=== PATIENT | female | born 1965 | race Hispanic/Latino ===

== ENCOUNTER → 2021-01-28 | Outpatient (CLI) | payer OTHER | END | disposition home or self-care (01) | LOC: RAH 15:32 | PROVIDERS: ATTEND Anesthesiology | DX: G89.4 Chronic pain syndrome (principal); M51.16 Intervertebral disc disorders with radiculopathy, lumbar region; M48.07 Spinal stenosis, lumbosacral region | CPT/HCPCS: 72148 ==

== ENCOUNTER 2021-02-08 13:00 | Observation (INO) | payer BC ==
[2021-02-08 11:17] LABS: BASOPHILS % (AUTO) 0.6 % (0.0-5.0); EOSINOPHILS % (AUTO) 1.7 % (0.0-8.0); LYMPHOCYTES % (AUTO) 27.9 % (21.0-51.0); MEAN CORPUSCULAR HEMOGLOBIN 31.7 pg (27.0-33.0); MEAN CORPUSCULAR HGB CONC 33.2 g/dL (32.0-36.0); MEAN CORPUSCULAR VOLUME 95.6 fL (79-99); MONOCYTES % (AUTO) 6.3 % (3.0-13.0); NEUTROPHILS % (AUTO) 63.3 % (40.0-77.0); PLATELET COUNT (AUTO) 239 K/uL (130-400); RED BLOOD CELL COUNT(AUTO) 4.29 MIL/uL (4.00-5.50); RED CELL DISTRIBUTION WIDTH 13.2 % (11.0-15.5); WHITE BLOOD COUNT (AUTO) 8.6 K/uL (4.8-10.8)
[2021-02-08 11:27] LABS: POTASSIUM 4.5 mmol/L (3.5-5.1)
[2021-02-12] MEDS ORDERED: GABA-533 PO (11:42)
[2021-02-12] MEDS ORDERED: LOSA25TA41 PO (11:42)
[2021-02-12] MEDS ORDERED: IBUP-14 PO (11:42)
[2021-02-12] MEDS ORDERED: TIZA4TAB5 PO (11:42)
[2021-02-13] VITALS (23 sets, daily range): BP systolic 104–139; BP diastolic 51–77
[2021-02-13] MEDS ORDERED: CEFAZOLIN SODIUM 1 GM VIAL ONE ×2 (06:24→06:46)
[2021-02-13] MEDS ORDERED: 0.9%NACL 1000ML 1,000 ML IV ONE (06:24)
[2021-02-13] MEDS ORDERED: BUPIVACAINE/EPI/PF 0.25% 30ML VIAL IJ ONE (06:46)
[2021-02-13] MEDS ORDERED: THROMBIN-JMI 20000 UNIT KIT TP ONE (06:46)
[2021-02-13] MEDS ORDERED: MORPHINE PF 100MG/10ML AMP IV ONE (06:46)
[2021-02-13] MEDS ORDERED: PHENYLEPHRINE HCL 10 MG/ML 1ML VIAL IV ONE ×2 (07:19→07:22)
[2021-02-13] MEDS ORDERED: LIDOCAINE PF 100MG/5ML (2%) SYRINGE 5ML ONE ×2 (07:19→10:02)
[2021-02-13] MEDS ORDERED: SUCCINYLCHOLINE CHLORIDE 20 MG/ML 10 ML VIAL ONE (07:19)
[2021-02-13] MEDS ORDERED: ROCURONIUM 10MG/1ML SYR 10 MG/ML ML ONE (07:20)
[2021-02-13] MEDS ORDERED: PROPOFOL 10 MG/ML 20ML VIAL IV ONE (07:20)
[2021-02-13] MEDS ORDERED: FENTANYL CITRATE PF 50 MCG/1 ML 2ML VIAL ONE (07:20)
[2021-02-13] MEDS ORDERED: CEFAZOLIN SODIUM 1 GM VIAL IVP ONE (08:00)
[2021-02-13] MEDS ORDERED: ASCO250T22 PO (08:14)
[2021-02-13] MEDS ORDERED: SOY155CA PO (08:14)
[2021-02-13] MEDS ORDERED: TUME1CAP PO (08:14)
[2021-02-13] MEDS ORDERED: MV-M1TAB20 PO (08:14)
[2021-02-13] MEDS ORDERED: DEXAMETHASONE SOD PHOSPHATE 10MG/ML 1ML VIAL ONE (08:52)
[2021-02-13] MEDS ORDERED: NEOSTIGMINE 5MG/5ML SYR IV ONE (09:47)
[2021-02-13] MEDS ORDERED: GLYCOPYRROLATE 1 MG/5 ML SYRINGE ONE (09:47)
[2021-02-13] MEDS ORDERED: KETOROLAC 30MG VIAL (30MG/ML) ONE (09:48)
[2021-02-13] MEDS: ASCORBIC ACID 500 MG TAB PO SCH (10:23)
[2021-02-13] MEDS ORDERED: LACTATED RINGERS 1000ML 1,000 ML IV SCH (10:30)
[2021-02-13] MEDS ORDERED: 0.9%NACL 10ML VIAL IVP PRN ×2 (10:30)
[2021-02-13] MEDS ORDERED: PROMETHAZINE HCL 25 MG/ML 1ML AMPULE IM PRN ×2 (10:30)
[2021-02-13] MEDS: LACTATED RINGERS 1000ML 1,000 ML IV SCH ×2 (10:30→23:33)
[2021-02-13] MEDS ORDERED: HYDROCODONE/ACETAMINOPHEN 5/325 MG TAB PO PRN ×2 (10:30)
[2021-02-13] MEDS: DEXAMETHASONE SOD PHOSPHATE 4 MG/ML 1ML VIAL IVP SCH ×3 (10:30→22:23)
[2021-02-13] MEDS ORDERED: IBUPROFEN 200 MG TAB PO SCH (10:30)
[2021-02-13] MEDS ORDERED: MORPHINE 2 MG SYG IVP PRN ×2 (10:30)
[2021-02-13] MEDS ORDERED: DEXAMETHASONE SOD PHOSPHATE 4 MG/ML 1ML VIAL IVP SCH (10:30)
[2021-02-13] MEDS: [UNRECOGNIZED DRUG - OTHER] PO SCH (10:32)
[2021-02-13] MEDS ORDERED: GABAPENTIN 300 MG CAPSULE PO SCH (21:00)
[2021-02-13] MEDS ORDERED: TIZANIDINE HCL 2 MG TABLET PO SCH (21:00)
[2021-02-14 00:07] VITALS: BP 125/68
[2021-02-14 03:48] VITALS: BP 116/64
[2021-02-14] MEDS: DEXAMETHASONE SOD PHOSPHATE 4 MG/ML 1ML VIAL IVP SCH (04:22)
[2021-02-14 08:00] VITALS: BP 130/80
[2021-02-14] MEDS: ASCORBIC ACID 500 MG TAB PO SCH (08:40)
[2021-02-14] MEDS: [UNRECOGNIZED DRUG - OTHER] PO SCH (08:42)
[2021-02-14] MEDS ORDERED: LOSARTAN 25 MG TABLET PO SCH (09:00)
[2021-02-14] MEDS ORDERED: SOY ISOFLA PO SCH (09:00)
[2021-02-14] MEDS ORDERED: FE FUMARATE/FA/MV, MIN COMB#15 1 TAB PO SCH (09:00)
[2021-02-14] MEDS ORDERED: MAG BARK PO SCH (09:00)
[2021-02-14] MEDS ORDERED: BLK COHOSH PO SCH (09:00)
== END 2021-02-14 10:24 | disposition home or self-care (01) ==
LOC: EDSTATUS 13:00 → DAHIP 02-13 06:00 → 4BH 02-13 11:33
PROVIDERS: ADMIT Neurological Surgery; ATTEND Neurological Surgery
DX: M48.061 Spinal stenosis, lumbar region without neurogenic claudication (principal); Z20.822 Contact with and (suspected) exposure to COVID-19; I10 Essential (primary) hypertension; M79.7 Fibromyalgia; M54.16 Radiculopathy, lumbar region; M24.20 Disorder of ligament, unspecified site
CPT/HCPCS: 36415; 63047; 63048; 71045; 72020; 80051; 85025; 87635; 93005; 96374; 96376 ×2; A4215; A4221; A4222; A4223; A4344; A4600; A4649 ×3; A4663; A6260; G0378 ×24; J0330; J0690 ×2; J1100 ×5; J1885; J2001 ×2; J2274; J2370; J2704; J2710; J3010; J3490 ×2; J7030; J7120 ×3